=== PATIENT | male | born 1955 ===

== ENCOUNTER 2018-08-19 08:50 | Outpatient (CLI) | payer OTHER ==
[~2018-08-19 08:50] MED LIST: HUMALOG100 UNIT/1
== END 2018-08-19 09:25 | disposition home or self-care (01) ==
LOC: RAD 08:50
DX: M17.0 Bilateral primary osteoarthritis of knee (principal); M16.0 Bilateral primary osteoarthritis of hip; M19.071 Primary osteoarthritis, right ankle and foot; M19.072 Primary osteoarthritis, left ankle and foot

== ENCOUNTER 2019-04-10 13:42 | Emergency (ER) | payer OTHER ==
[~2019-04-10] VITALS: Ht 165.1 cm; Wt 79.8 kg
[2019-04-10] MEDS ORDERED: METOPROLOL ER-1 EAC1 PO (14:11)
[2019-04-10] MEDS ORDERED: LISINOPRIL20 MG PO (14:12)
[2019-04-10] MEDS ORDERED: PLAVIX75 MG PO (14:12)
[2019-04-10] MEDS ORDERED: ASPIR 8181 MG PO (14:12)
[2019-04-10] MEDS ORDERED: KETO10TA2 PO (19:31)
[2019-04-10] MEDS ORDERED: TAMS0.4C PO (19:31)
== END 2019-04-10 20:07 | disposition home or self-care (01) ==
LOC: ER 13:42
DX: N20.2 Calculus of kidney with calculus of ureter (principal); K57.30 Diverticulosis of large intestine without perforation or abscess without bleeding; R10.814 Left lower quadrant abdominal tenderness